=== PATIENT | female | born 1950 | race Caucasian/White ===

== ENCOUNTER 2017-07-23 15:51 | Inpatient (IN) ==
[2017-07-23] MEDS ORDERED: METOCLOPRAMIDE 10 MG/2 ML VIAL IV STA (16:24)
[2017-07-23] MEDS ORDERED: ONDANSETRON 4 MG/2 ML VIAL IV STA (16:24)
[2017-07-23] MEDS ORDERED: metroNIDAZOLE INJ 500 MG in PREMIX 1 EACH IV STA (16:24)
[2017-07-23] MEDS ORDERED: SODIUM CHLORIDE 0.9% 500 ML IV STA (16:24)
[2017-07-23] MEDS ORDERED: PANTOPRAZOLE 40 MG VIAL IV STA (16:24)
--- NOTE | 2017-07-23 16:31 | Emergency Department Note ---
Arrival - Arrival Chief Complaint: GI Bleed/Rectal Stated Complaint: stomach cramps,bleeding from rectum ED Nursing Triage Note: ABD PAIN, WEAKNESS, DARK STOOLS ONSET THIS AM Mode of Arrival: Ambulatory Limitations: No Limitations Source: Patient Time Seen by Provider: 07/23/17 16:24 - History of Present Illness HPI Narrative: This 66-year-old white female presents with 3 weeks of progressive crampy abdominal pain associated with nausea and in the last 24 hours black tarry bowel movements. The patient dates onset of her symptoms with a CT done July 02 which revealed diverticulitis versus acute colitis. Beyond the stated symptoms she denies shaheen vomiting, diarrhea, bright red blood per rectum , heartburn, belching, or water brash. She does state that she is awaiting a colonoscopy per Dr. Van. Notable during this. Has been problems with labile blood pressure with which she describes as significant periods of hypotension. In this regard she denies any chest pain, shortness of breath, or diaphoresis. Currently she appears in no acute medical distress. Onset (ago): week(s) (Patient presents 3 weeks post onset of symptoms) Allergies/Adverse Reactions: Allergies Allergy/AdvReac Type Severity Reaction Status Date / Time ciprofloxacin [From Cipro] Allergy HIVES Verified 07/23/17 16:05 iodine Allergy HIVES Verified 07/23/17 16:05 povidone-iodine Allergy HIVES Verified 07/23/17 16:05 [From Betadine] Seafood Allergy HIVES Verified 07/23/17 16:05 soap [From Betadine] Allergy HIVES Verified 07/23/17 16:05 Sulfa (Sulfonamide Allergy HIVES Verified 07/23/17 16:05 Antibiotics) sulfamethoxazole Allergy HIVES Verified 07/23/17 16:05 [From Bactrim] tolterodine [From Detrol] Allergy HIVES Verified 07/23/17 16:05 trimethoprim [From Bactrim] Allergy HIVES Verified 07/23/17 16:05 vancomycin Allergy HIVES Verified 07/23/17 16:05 Home Medications: Home Medications Medication Instructions Recorded Confirmed Type Ascorbic Acid [Vitamin C] 1,000 mg PO QAM 07/23/17 07/23/17 History Buspirone HCl [Buspirone HCl] 30 mg PO BID 07/23/17 07/23/17 History Butalbital/Acet/Caff 50-325-40 1 tablet PO Q4H PRN 07/23/17 07/23/17 History [Fioricet 50-325-40 mg Tablet] Cetirizine Tab [ZyrTEC Tab] 10 mg PO DAILY 07/23/17 07/23/17 History Clopidogrel Bisulfate [Clopidogrel] 75 mg PO QAM 07/23/17 07/23/17 History Dicyclomine Cap/Tab [Bentyl 10 mg PO QID PRN 07/23/17 07/23/17 History Cap/Tab] Divalproex ER [Depakote ER] 250 mg PO DAILY 07/23/17 07/23/17 History Docusate Sodium [Colace] 100 mg PO QAM PRN 07/23/17 07/23/17 History Eszopiclone [Lunesta] 2 mg PO BEDTIME 07/23/17 07/23/17 History Metoprolol Tartrate Tab [Lopressor 50 mg PO BID 07/23/17 07/23/17 History Tab] Ondansetron HCl [Ondansetron HCl] 8 mg PO Q8H PRN 07/23/17 07/23/17 History Oxycodone HCl/Acetaminophen 1 each PO TID 07/23/17 07/23/17 History [Oxycodone-Acetaminophen 10-325] Pregabalin [Lyrica] 150 mg PO BEDTIME 07/23/17 07/23/17 History Ranitidine Tab [Zantac Tab] 150 mg PO BID 07/23/17 07/23/17 History Rosuvastatin Calcium [Rosuvastatin 40 mg PO BEDTIME 07/23/17 07/23/17 History Calcium] Tizanidine HCl [Tizanidine HCl] 4 mg PO BEDTIME 07/23/17 07/23/17 History Tramadol HCl [Tramadol Tab] 100 mg PO BID 07/23/17 07/23/17 History hydrOXYzine pamoate [Hydroxyzine 25 mg PO BEDTIME 07/23/17 07/23/17 History Pamoate] Review of System - Review of System 12 point system: reviewed and no additional remarkable complaints except as stated - Review of System Constitutional: Present: as per HPI Respiratory: Present: as per HPI Cardiovascular: Present: as per HPI Gastrointestinal: Present: as per HPI Medical,Surgical,& Family Hx - Medical History Cardio: History of: Hypertension Neurology: History of: Cerebrovascular Accident Respiratory: History of: Asthma, COPD Musculoskeletal: History of: Back/Neck Problems, Musculoskeletal Problems ( chronic pain) - Social History Smoking Status: Never smoker Exam Physical Examination: GENERAL: Chronically ill-appearing white female in no acute distress. HEENT: Normocephalic. No trauma. Moist mucous membranes. EOMI. PERRLA. ENT NML NECK: Supple. No adenopathy. CARDIAC: Regular. No murmurs. Heart rate 76 CHEST: Clear to auscultation. No respiratory distress. O2 sat 91% ABDOMEN: Soft. Tender lower quadrants. Hypoactive bowel sounds. EXTREMITIES: No trauma. Normal ROM. No pedal edema. SKIN: No diaphoresis. No rash. NEURO: Alert. Oriented 3. Motor, sensory, vibratory intact. No focal deficits. Vital Signs: Vital Signs Temperature 98.0 F 07/23/17 16:20 Pulse Rate 76 07/23/17 16:20 Respiratory Rate 16 07/23/17 16:20 Blood Pressure 120/82 07/23/17 16:20 O2 Sat by Pulse Oximetry 99 07/23/17 16:02 Course - Reevaluation(s) Reevaluation #1: Patient advised of need for hospitalization with grossly heme positive stools and symptoms of recurrent diverticulitis. - Consultations Consultation #1: Discussed with hospitalist service who will admit for further evaluation treatment. Results - Labs CBC & BMP: 07/23/17 16:44 07/23/17 16:44 Labs: I reviewed the laboratory and noted the depressed hematocrit as well as bump in BUN. - Impressions EKG: Sinus rhythm with rate of 74. Normal NE interval, normal QRS duration. Nonspecific ST changes. No acute injury pattern noted. - Diagnostic Findings Procedure: Chest x-ray: image reviewed by me, report reviewed by me (Normal chest) Disposition Clinical Impression: Diverticulitis, Melena Case discussed with: patient, patient's family Disposition: Still a Patient Condition: Guarded Time of Disposition: 17:49
[2017-07-23] MEDS ORDERED: ONDANSETRON 4 MG/2 ML VIAL ONE (16:59)
[2017-07-23] MEDS ORDERED: PANTOPRAZOLE 40 MG VIAL IV ONE (16:59)
[2017-07-23] MEDS ORDERED: METOCLOPRAMIDE 10 MG/2 ML VIAL ONE (16:59)
[2017-07-23] MEDS ORDERED: metroNIDAZOLE 500 MG/100 ML PREMIX IV ONE (16:59)
[2017-07-23 17:07] LABS: Basophils % 0.4 % (0.0-0.8); Eosinophils % 0.4 % (0.00-10.9); Hematocrit 35.8 VOL% (35.7-47.0); Hemoglobin 11.8 GM/DL (12.0-16.0); Immature Granulocytes % 0.4 %; Immature Granulocytes Absolute 0.04 #; Lymphocytes # 2.5 10*3/uL (1.4-4.0); Lymphocytes % 27.3 % (21.3-54.2); Mean Corpuscular Hemoglobin 31 PG (27-34); Mean Corpuscular Volume 95.2 FL (87-102); Mean Platelet Volume 10.6 FL (9.6-12.0); Monocytes # 0.7 10*3/uL (0.11-0.8); Monocytes % 7.4 % (1.7-12.7); Neutrophils # 5.9 10*3/uL (1.4-7.4); Neutrophils % 64.1 % (38.7-73.9); Platelet Count 222 T/CUMM (130-400); Red Blood Count 3.76 MC/CUMM (3.8-5.5); Red Cell Distribution Width 12.6 % (9.3-17.3); White Blood Count 9.2 T/CUMM (4-12)
--- NOTE | 2017-07-23 17:13 | Order Completion Report ---
See report scanned to EMR
[2017-07-23 17:18] LABS: PT Patient Result 10.9 SECS; Partial Thromboplastin Time 27.4 SECS (0-40)
[2017-07-23 17:20] LABS: Alanine Aminotransferase 20 U/L (13-56); Albumin 3.8 G/DL (3.4-5.0); Alkaline Phosphatase 44 U/L (45-117); Aspartate Amino Transferase 23 U/L (0-37); Bilirubin,Total < 0.39 MG/DL (0.2-1.0); Blood Urea Nitrogen 38 MG/DL (7-18); Glucose 92 MG/DL (74-106); Osmolality,Calculated 289.3 MOS/KG (273-304); Potassium 4.4 MMOL/L (3.5-5.1); Sodium 141 MMOL/L (136-145); Total Protein 7.1 G/DL (6.4-8.3)
[2017-07-23 17:30] LABS: Troponin I Only < 0.015 NG/ML (0.00-0.045)
--- NOTE | 2017-07-23 17:58 | XRay Report ---
Portable chest Exam date: 07/23/2017 Indication: Shortness of breath, cough Comparison: July 18, 2015 Findings: Cardiomediastinal contours are normal. Lungs are clear bilaterally. No acute osseous abnormalities. Visualized upper abdomen demonstrates no acute pathology. Impression: No acute cardiopulmonary findings PROCEDURE INTERPRETED AT [facility] DEPARTMENT OF RADIOLOGY Final Report Signed by: Kenzie Cortes MD
[2017-07-23] MEDS ORDERED: MAGNESIUM SULF RIDER 4 GM in PREMIX 1 EACH IV PRN (18:11)
[2017-07-23] MEDS ORDERED: MAGNESIUM SULF RIDER 2 GM in PREMIX 1 EACH IV PRN (18:11)
--- NOTE | 2017-07-23 18:25 | Hospitalist History & Physical ---
Assessment and Plan (1) Diverticulitis Status: Acute Assessment and plan: The patient was noted to have diffuse lower quadrant tenderness upon gentle palpation at the time of assessment. The patient is followed in the outpatient setting by Dr. Addison Van. Upon review of the patient's medical record, the patient was recently evaluated for symptoms similar in nature. The patient underwent CT abdomen and pelvis in the outpatient setting which was significant for diverticulitis versus acute colitis and hepatic steatosis. The patient was scheduled for an outpatient colonoscopy however, started to experience bradycardia. The patient was then advised to have a full cardiac workup and stress test in order to be cleared for colonoscopy. We will start gentle rehydration, empiric antibiotics, and pain management. We will place the patient n.p.o. Gastroenterology consultation has been requested. Current Visit: Yes (2) Acute kidney injury Status: Acute Assessment and plan: BUN and creatinine noted at 38 and 1.10. This is likely secondary to volume depletion. Upon review of the patient's medical record, during the previous clinical encounter on July 02, 2017, the patient's creatinine was noted at 0.66. We will rehydrate and recheck CMP in a.m. Current Visit: Yes History of Present Illness Chief complaint: abdominal cramps/rectal bleeding History of present illness: This is a very pleasant 58-year-old female that presented to the ED at [facility] this afternoon for the evaluation of abdominal cramping and rectal bleeding. Patient has a medical history significant for hypertension , cerebrovascular accident, asthma, chronic obstructive pulmonary disease, chronic pain, hyperlipidemia, gastroesophageal reflux disease, and conversion disorder. The patient reported no significant surgical history at the time of encounter. The patient reported the onset of the above symptoms 3 weeks prior to presentation. The patient reports that she is followed in the outpatient setting by Dr. Addison Van. She reported a recent evaluation and outpatient CT of the abdomen and pelvis ordered by Dr. Van. The patient underwent CT abdomen and pelvis on July 02, 2017 which was significant for diverticulitis versus acute colitis. Apparently, the patient started to experience profound bradycardia prompting cancellation of the pending colonoscopy. The patient had been referred to a cashier ticket selling and a full cardiac workup was performed. The patient underwent cardiac stress test on last week for clearance however, the patient has not received the results. The patient reported that she experienced multiple black tarry stools that started on yesterday. Her symptoms became severe this afternoon prompting her to present to the ED for further evaluation. The patient was assessed at the time of ED presentation. Labs were obtained which were significant for hemoglobin 11.8, hematocrit 35.8, chloride 108, BUN 38, creatinine 1.10 and alkaline phosphatase 44. Chest x-ray was essentially unremarkable for any acute cardiopulmonary processes. After brief discussion with both Dr. Stephenson and Dr. Mathur, the patient will be admitted to the hospitalist service for continuation of care. Due to the severity of the patient's presenting symptoms, a gastroenterology consultation with Dr. Addison Van has been requested. Home medications have been reviewed and reconciled. CODE STATUS discussed; patient is FULL CODE. Home Medications Medication Instructions Recorded Confirmed Type Ascorbic Acid [Vitamin C] 1,000 mg PO QAM 07/23/17 07/23/17 History Buspirone HCl [Buspirone HCl] 30 mg PO BID 07/23/17 07/23/17 History Butalbital/Acet/Caff 50-325-40 1 tablet PO Q4H PRN 07/23/17 07/23/17 History [Fioricet 50-325-40 mg Tablet] Cetirizine Tab [ZyrTEC Tab] 10 mg PO DAILY 07/23/17 07/23/17 History Clopidogrel Bisulfate [Clopidogrel] 75 mg PO QAM 07/23/17 07/23/17 History Dicyclomine Cap/Tab [Bentyl 10 mg PO QID PRN 07/23/17 07/23/17 History Cap/Tab] Divalproex ER [Depakote ER] 250 mg PO DAILY 07/23/17 07/23/17 History Docusate Sodium [Colace] 100 mg PO QAM PRN 07/23/17 07/23/17 History Eszopiclone [Lunesta] 2 mg PO BEDTIME 07/23/17 07/23/17 History Metoprolol Tartrate Tab [Lopressor 50 mg PO BID 07/23/17 07/23/17 History Tab] Ondansetron HCl [Ondansetron HCl] 8 mg PO Q8H PRN 07/23/17 07/23/17 History Oxycodone HCl/Acetaminophen 1 each PO TID 07/23/17 07/23/17 History [Oxycodone-Acetaminophen 10-325] Pregabalin [Lyrica] 150 mg PO BEDTIME 07/23/17 07/23/17 History Ranitidine Tab [Zantac Tab] 150 mg PO BID 07/23/17 07/23/17 History Rosuvastatin Calcium [Rosuvastatin 40 mg PO BEDTIME 07/23/17 07/23/17 History Calcium] Tizanidine HCl [Tizanidine HCl] 4 mg PO BEDTIME 07/23/17 07/23/17 History Tramadol HCl [Tramadol Tab] 100 mg PO BID 07/23/17 07/23/17 History hydrOXYzine pamoate [Hydroxyzine 25 mg PO BEDTIME 07/23/17 07/23/17 History Pamoate] Allergies Allergy/AdvReac Type Severity Reaction Status Date / Time ciprofloxacin [From Cipro] Allergy HIVES Verified 07/23/17 16:05 iodine Allergy HIVES Verified 07/23/17 16:05 povidone-iodine Allergy HIVES Verified 07/23/17 16:05 [From Betadine] Seafood Allergy HIVES Verified 07/23/17 16:05 soap [From Betadine] Allergy HIVES Verified 07/23/17 16:05 Sulfa (Sulfonamide Allergy HIVES Verified 07/23/17 16:05 Antibiotics) sulfamethoxazole Allergy HIVES Verified 07/23/17 16:05 [From Bactrim] tolterodine [From Detrol] Allergy HIVES Verified 07/23/17 16:05 trimethoprim [From Bactrim] Allergy HIVES Verified 07/23/17 16:05 vancomycin Allergy HIVES Verified 07/23/17 16:05 Medical,Surgical,& Family Hx - Medical History Cardio: History of: Hypertension Neurology: History of: Cerebrovascular Accident Respiratory: History of: Asthma, COPD Musculoskeletal: History of: Back/Neck Problems, Musculoskeletal Problems ( chronic pain) - Family History Family History: Reports;: Family Diabetes, Family Heart Disease, Family Hypertension - Social History Smoking Status: Never smoker Have you smoked in the last 12 months: No Frequency of Alcohol Use: None Type of Drug Use: None Marital Status: Lives With:: Spouse 12 point system: reviewed and no additional remarkable complaints except as stated Exam - Constitutional Vitals: Period Temp Pulse Resp BP Sys/Sorenson Pulse Ox Last 24 Hr 98.0 F-98.0 F 76-76 16-16 120-120/82-82 99 General appearance: normal weight, no acute distress - Head Head exam: Present: normal inspection, normocephalic, atraumatic - Eye Eye exam: Present: EOMI. Absent: conjunctival injection Pupils: Present: JOHN, normal accommodation - ENT ENT exam: Present: normal exam, normal external ear exam, normal oropharynx - Neck Neck exam: Present: normal inspection, lymphadenopathy, meningismus, tenderness , thyromegaly - Respiratory Respiratory exam: Present: clear to auscultation bilaterally. Absent: rales, rhonchi, stridor, wheezes - Cardiovascular Cardiovascular exam: Present: regular rate and rhythm. Absent: carotid bruit, diastolic murmur, gallop, JVD, rubs, systolic murmur - GI/Abdominal GI/Abdominal exam: Present: normal bowel sounds, tenderness (Diffuse lower quadrant tenderness) - Extremities Exam Extremities exam: Present: normal inspection, normal capillary refill, full ROM. Absent: edema - Back Exam Back exam: Present: normal inspection - Neurological Exam Neurological exam: Present: alert, oriented X3, CN II-XII intact - Psychiatric Psychiatric exam: Present: flat affect - Skin Skin exam: Present: normal color, warm, dry Results - Labs CBC & BMP: 07/23/17 16:44 07/23/17 16:44 Lab Results: I have reviewed the past 24 hour labs
[2017-07-23] MEDS: METOPROLOL TARTRATE 50 MG TABLET PO SCH (21:40)
[2017-07-23] MEDS: MORPHINE 2 MG/1 ML SYRINGE IV PRN (21:40)
[2017-07-23] MEDS: HydrOXYzine PAMOATE 25 MG CAPSULE PO SCH (21:43)
[2017-07-23 22:01] LABS: Alanine Aminotransferase 19 U/L (13-56); Albumin 3.3 G/DL (3.4-5.0); Alkaline Phosphatase 36 U/L (45-117); Aspartate Amino Transferase 17 U/L (0-37); Bilirubin,Total < 0.39 MG/DL (0.2-1.0); Blood Urea Nitrogen 34 MG/DL (7-18); Calcium 8.2 MG/DL (8.5-10.1); Glucose 90 MG/DL (74-106); Potassium 4.1 MMOL/L (3.5-5.1); Sodium 143 MMOL/L (136-145); Total Protein 6.1 G/DL (6.4-8.3)
[2017-07-23] MEDS: AMPICILLIN/SULBACTAM 3,000 MG in SODIUM CHLORIDE 0.9% 100 ML IV SCH (22:03)
[2017-07-23] MEDS: SODIUM CHLORIDE 0.9% 1,000 ML IV SCH (22:03)
[2017-07-24] MEDS: metroNIDAZOLE INJ 500 MG in PREMIX 1 EACH IV SCH ×5 (00:20→23:24)
[2017-07-24] MEDS: AMPICILLIN/SULBACTAM 3,000 MG in SODIUM CHLORIDE 0.9% 100 ML IV SCH ×4 (02:51→22:15)
[2017-07-24 08:00] LABS: Basophils # 0.1 10*3/uL (0.0-0.2); Basophils % 0.9 % (0.0-0.8); Eosinophils # 0.1 10*3/uL (0.0-0.87); Eosinophils % 1.6 % (0.00-10.9); Immature Granulocytes % 0.2 %; Immature Granulocytes Absolute 0.01 #; Lymphocytes # 2.3 10*3/uL (1.4-4.0); Lymphocytes % 40.8 % (21.3-54.2); Mean Corpuscular HGB Conc 32.8 GM/DL (32-36); Mean Corpuscular Hemoglobin 31 PG (27-34); Mean Corpuscular Volume 95.7 FL (87-102); Mean Platelet Volume 10.9 FL (9.6-12.0); Monocytes # 0.5 10*3/uL (0.11-0.8); Monocytes % 8.5 % (1.7-12.7); Neutrophils # 2.7 10*3/uL (1.4-7.4); Platelet Count 182 T/CUMM (130-400); Red Blood Count 3.03 MC/CUMM (3.8-5.5); Red Cell Distribution Width 12.7 % (9.3-17.3)
[2017-07-24 08:01] LABS: Hemoglobin 9.5 GM/DL (12.0-16.0); White Blood Count 5.7 T/CUMM (4-12)
[2017-07-24 08:04] LABS: Bilirubin,Total 0.5 MG/DL (0.2-1.0); Calcium 7.9 MG/DL (8.5-10.1); Magnesium 2.2 MG/DL (1.8-2.4); Osmolality,Calculated 286.1 MOS/KG (273-304); Phosphorous 2.2 MG/DL (2.5-4.9); Potassium 3.7 MMOL/L (3.5-5.1); Total Protein 5.5 G/DL (6.4-8.3)
[2017-07-24 08:22] LABS: Giant Platelets Few; Hypochromasia 1+; Microcytosis Slight; Ovalocytes Slight; Platelet Estimate Normal
--- NOTE | 2017-07-24 08:52 | Gastrointestinal Consult Note ---
<Elvia Hansen - Last Filed: 07/24/17 08:42> Assessment and Plan (1) Abdominal pain Status: Acute Assessment and plan: 07/24-Three to four week history of abdominal pain with nausea and vomiting. CT of abdomen results on 07/02 reviewed as below with diverticultisis verses colitis. IV Flagyl and Unasyn started. Stool for occult blood pending. No leukocytosis or fever. Clear liquid diet. Plan and addendum to follow by Dr Van Current Visit: Yes (2) Melena Status: Acute Assessment and plan: 07/24-New onset melena on yesterday without associated symptoms. On Plavix therapy as well as Naproxen and Aleve. Consider EGD for further evaluation of melena. Monitor serial HH. Stools for occult blood pending. Plan and addendum to follow by DR Van. Current Visit: Yes History of Present Illness Chief complaint: Abdominal pain, melena History of present illness: Ms. Medina is a 66 year old female who was admitted to the hospital on yesterday with several week history of abdominal pain and onset of melena. Pt states that approximately 3-4 weeks ago she began having some RLQ abdominal pain and cramping. She states that pain started gradually and worsened over time. She had no other symptoms associated with this at that time however presented to see Dr Tran. She had a CT of the abdomen done and was noted to show diverticulitis verses colitis at the descending and sigmoid colon. She was then seen by Dr Van and give antibiotics which pt states she did complete. She states the pain did not improve following this and was scheduled for a colonoscopy however she began having some cardiac issues with bradycardia and blood pressure and was referred to [facility]. She underwent stress test last week but has not heard back from the results. She states over the last several days she continued to have pain and cramping as well as nausea with three different episodes of vomiting. She states the vomiting she felt was more related to her blood pressure, and denies any coffee ground or hematemesis with this. Pt states that on yesterday morning she developed some dark tarry stools and came to the ER at that point. She denies any hematochezia. She denies any recent weight loss, dysphagia or dyspepsia. She denies any increased GERD. She states she has no epigastric pain or discomfort. Denies fever or chills. Denies changes in bowel pattern. She has no prior history of PUD In the past. She states that she does take occasional Aleve and Naproxen. She has chronic pain and takes daily opiod therapy. Pt also takes Plavix for a stroke in 2012. Her last dose of this was yesterday and is currently on hold. She has had endoscopy in the past by Dr Cheng with last colonoscopy several years ago with no findings per patient. She cannot recall last EGD. On admission, her HH was at and is now at 07/19 however its possible this could be dilutional due to no overt bleeding since prior to admission. Home Medications Medication Instructions Recorded Confirmed Type Ascorbic Acid [Vitamin C] 1,000 mg PO QAM 07/23/17 07/23/17 History Buspirone HCl [Buspirone HCl] 30 mg PO BID 07/23/17 07/23/17 History Butalbital/Acet/Caff 50-325-40 1 tablet PO Q4H PRN 07/23/17 07/23/17 History [Fioricet 50-325-40 mg Tablet] Cetirizine Tab [ZyrTEC Tab] 10 mg PO DAILY 07/23/17 07/23/17 History Clopidogrel Bisulfate [Clopidogrel] 75 mg PO QAM 07/23/17 07/23/17 History Dicyclomine Cap/Tab [Bentyl 10 mg PO QID PRN 07/23/17 07/23/17 History Cap/Tab] Divalproex ER [Depakote ER] 250 mg PO DAILY 07/23/17 07/23/17 History Docusate Sodium [Colace] 100 mg PO QAM PRN 07/23/17 07/23/17 History Eszopiclone [Lunesta] 2 mg PO BEDTIME 07/23/17 07/23/17 History Metoprolol Tartrate Tab [Lopressor 50 mg PO BID 07/23/17 07/23/17 History Tab] Naproxen [Naprosyn Tab] 1 tablet PO BID PRN 07/23/17 07/23/17 History Ondansetron HCl [Ondansetron HCl] 8 mg PO Q8H PRN 07/23/17 07/23/17 History Oxycodone HCl/Acetaminophen 1 each PO TID 07/23/17 07/23/17 History [Oxycodone-Acetaminophen 10-325] Pregabalin [Lyrica] 150 mg PO BEDTIME 07/23/17 07/23/17 History Ranitidine Tab [Zantac Tab] 150 mg PO BID 07/23/17 07/23/17 History Rosuvastatin Calcium [Rosuvastatin 40 mg PO BEDTIME 07/23/17 07/23/17 History Calcium] Tizanidine HCl [Tizanidine HCl] 4 mg PO BEDTIME 07/23/17 07/23/17 History Tramadol HCl [Tramadol Tab] 100 mg PO BID PRN 07/23/17 07/23/17 History hydrOXYzine pamoate [Hydroxyzine 25 mg PO BEDTIME 07/23/17 07/23/17 History Pamoate] Allergies Allergy/AdvReac Type Severity Reaction Status Date / Time ciprofloxacin [From Cipro] Allergy HIVES Verified 07/23/17 16:05 iodine Allergy HIVES Verified 07/23/17 16:05 povidone-iodine Allergy HIVES Verified 07/23/17 16:05 [From Betadine] Seafood Allergy HIVES Verified 07/23/17 16:05 soap [From Betadine] Allergy HIVES Verified 07/23/17 16:05 Sulfa (Sulfonamide Allergy HIVES Verified 07/23/17 16:05 Antibiotics) sulfamethoxazole Allergy HIVES Verified 07/23/17 16:05 [From Bactrim] tolterodine [From Detrol] Allergy HIVES Verified 07/23/17 16:05 trimethoprim [From Bactrim] Allergy HIVES Verified 07/23/17 16:05 vancomycin Allergy HIVES Verified 07/23/17 16:05 Medical,Surgical,& Family Hx - Medical History Cardio: History of: Cerebrovascular Disease (cva 2013), Hypertension Neurology: History of: Cerebrovascular Accident Endocrine: History of: Endocrine Problems (diabetic- diet controlled) Respiratory: History of: Asthma, COPD Musculoskeletal: History of: Back/Neck Problems, Musculoskeletal Problems ( chronic pain) - Surgical History Reproductive Surgeries: Surgical HX of;: Section, Hysterectomy - Family History Family History: Reports;: Family Diabetes, Family Heart Disease, Family Hypertension - Social History Smoking Status: Never smoker Frequency of Alcohol Use: None Type of Drug Use: None 12 point system: reviewed and no additional remarkable complaints except as stated - Constitutional Constitutional: Present: as per HPI - EENT Eyes: Present: as per HPI Ears: Present: as per HPI Nose, mouth and throat: Present: as per HPI - Cardiovascular Cardiovascular: Present: as per HPI - Respiratory Respiratory: Present: as per HPI - Gastrointestinal Gastrointestinal: Present: as per HPI, abdominal pain, melena, nausea, vomiting - Genitourinary Genitourinary: Present: as per HPI - Musculoskeletal Musculoskeletal: Present: as per HPI, arthralgias, back pain - Neurological Neurological: Present: as per HPI - Psychiatric Psychiatric: Present: as per HPI - Endocrine Endocrine: Present: as per HPI - Hematologic/Lymphatic Hematologic/Lymphatic: Present: as per HPI Exam - Constitutional Vitals: Period Temp Pulse Resp BP Sys/Sorenson Pulse Ox Last 24 Hr 98 F-99.4 F 73-98 16-20 96-140/48-82 95-100 General appearance: normal weight, no acute distress - Head Head exam: Present: normal inspection, normocephalic - Eye Eye exam: Present: other (lids and conjunctiva unremarkable). Absent: scleral icterus - ENT ENT exam: Present: normal exam, normal oropharynx - Neck Neck exam: Present: normal inspection - Respiratory Respiratory exam: Present: clear to auscultation bilaterally. Absent: rales, rhonchi, wheezes - Cardiovascular Cardiovascular exam: Present: regular rate and rhythm. Absent: diastolic murmur , JVD, systolic murmur - GI/Abdominal GI/Abdominal exam: Present: normal bowel sounds, soft. Absent: ascites, distended, mass, organomegaly, tenderness - Extremities Exam Extremities exam: Present: normal inspection, full ROM - Back Exam Back exam: Present: normal inspection - Neurological Exam Neurological exam: Present: alert, oriented X3 - Psychiatric Psychiatric exam: Present: normal affect, normal mood - Skin Skin exam: Present: normal color, warm, dry Results - Labs CBC & BMP: 07/24/17 05:52 07/24/17 05:52 Lab Results: I have reviewed the past 24 hour labs <Addison Van - Last Filed: 07/24/17 22:20> History of Present Illness Chief complaint: 3030 History of present illness: Ms. Medina is a 66 year old female Exam - Constitutional Vitals: Period Temp Pulse Resp BP Sys/Sorenson Pulse Ox Last 24 Hr 98 F-99.4 F 73-87 16-20 89-127/37-60 92-100 Results - Labs CBC & BMP: 07/24/17 05:52 07/24/17 05:52
[2017-07-24] MEDS: CETIRIZINE 10 MG TABLET PO SCH (09:01)
[2017-07-24] MEDS: METOPROLOL TARTRATE 50 MG TABLET PO SCH (09:01)
[2017-07-24] MEDS: DIVALPROEX ER 250 MG TABLET PO SCH (09:01)
[2017-07-24] MEDS: SODIUM CHLORIDE 0.9% 1,000 ML IV SCH ×2 (09:01→20:30)
[2017-07-24] MEDS: PANTOPRAZOLE 40 MG VIAL IV SCH (09:02)
[2017-07-24] MEDS ORDERED: SODIUM PHOSPHATE INJ 30 MMOL in SODIUM CHLORIDE 0.9% 250 ML IV ONE (09:17)
[2017-07-24] MEDS: MORPHINE 2 MG/1 ML SYRINGE IV PRN (09:56)
--- NOTE | 2017-07-24 10:56 | Hospitalist Progress Note ---
<Morro Alcantara - Last Filed: 07/24/17 10:52> Assessment and Plan (1) Diverticulitis Status: Acute Assessment and plan: The patient was noted to have diffuse lower quadrant tenderness upon gentle palpation at the time of assessment. The patient is followed in the outpatient setting by Dr. Addison Van. Upon review of the patient's medical record, the patient was recently evaluated for symptoms similar in nature. The patient underwent CT abdomen and pelvis in the outpatient setting which was significant for diverticulitis versus acute colitis and hepatic steatosis. The patient was scheduled for an outpatient colonoscopy however, started to experience bradycardia. The patient was then advised to have a full cardiac workup and stress test in order to be cleared for colonoscopy. We will start gentle rehydration, empiric antibiotics, and pain management. We will place the patient n.p.o. Gastroenterology consultation has been requested. 07/24-continue supportive measures as previously ordered. Awaiting GI consultation for further direction. Current Visit: Yes (2) Acute kidney injury Status: Acute Assessment and plan: BUN and creatinine noted at 38 and 1.10. This is likely secondary to volume depletion. Upon review of the patient's medical record, during the previous clinical encounter on July 02, 2017, the patient's creatinine was noted at 0.66. We will rehydrate and recheck CMP in a.m. 07/24-noted improvement in renal function. BUN and creatinine noted at 23/0.80. We will continue gentle hydration and recheck CMP in a.m. Current Visit: Yes Hospitalist: Subjective Interval history: Patient seen and examined; chart reviewed. No significant overnight events reported per staff. Awaiting GI consultation for further direction. Exam - Constitutional Vitals: Period Temp Pulse Resp BP Sys/Sorenson Pulse Ox Last 24 Hr 98 F-99.4 F 73-98 16-20 96-140/48-82 95-100 General appearance: normal weight, no acute distress - Head Head exam: Present: normal inspection, normocephalic, atraumatic - Eye Eye exam: Present: EOMI. Absent: conjunctival injection Pupils: Present: JOHN, normal accommodation - ENT ENT exam: Present: normal exam, normal external ear exam, normal oropharynx - Neck Neck exam: Present: normal inspection. Absent: lymphadenopathy, meningismus, tenderness, thyromegaly - Respiratory Respiratory exam: Present: clear to auscultation bilaterally. Absent: rales, rhonchi, stridor, wheezes - Cardiovascular Cardiovascular exam: Present: regular rate and rhythm. Absent: carotid bruit, diastolic murmur, gallop, JVD, systolic murmur - GI/Abdominal GI/Abdominal exam: Present: normal bowel sounds, tenderness (Diffuse lower abdominal tenderness) - Extremities Exam Extremities exam: Present: normal inspection, normal capillary refill, full ROM. Absent: edema - Back Exam Back exam: Present: normal inspection - Neurological Exam Neurological exam: Present: alert, oriented X3, CN II-XII intact - Psychiatric Psychiatric exam: Present: flat affect - Skin Skin exam: Present: normal color, warm, dry Results - Labs CBC & BMP: 07/24/17 05:52 07/24/17 05:52 Lab Results: I have reviewed the past 24 hour labs <David Fajardo - Last Filed: 07/24/17 15:31> Hospitalist: Subjective Interval history: Patient seen and examined independently of MARIAN Alcantara, agree with history, assessment and plan as documented. Patient reports abdominal cramping. Her blood pressure is running low. Hold her metoprolol. Exam - Constitutional Vitals: Period Temp Pulse Resp BP Sys/Sorenson Pulse Ox Last 24 Hr 98 F-99.4 F 73-98 16-20 89-140/37-82 92-100 Results - Labs CBC & BMP: 07/24/17 05:52 07/24/17 05:52
[2017-07-24] MEDS: ONDANSETRON 4 MG/2 ML VIAL IV PRN (20:09)
[2017-07-24] MEDS: HydrOXYzine PAMOATE 25 MG CAPSULE PO SCH (20:10)
[2017-07-24] MEDS: KETOROLAC 30 MG/1 ML VIAL IV PRN (21:22)
[2017-07-24] MEDS: MELATONIN 3 MG TABLET PO PRN (23:24)
[2017-07-25] MEDS: AMPICILLIN/SULBACTAM 3,000 MG in SODIUM CHLORIDE 0.9% 100 ML IV SCH ×4 (04:08→21:26)
[2017-07-25] MEDS: metroNIDAZOLE INJ 500 MG in PREMIX 1 EACH IV SCH ×4 (05:11→22:36)
[2017-07-25 06:50] LABS: Alanine Aminotransferase 13 U/L (13-56); Albumin 2.8 G/DL (3.4-5.0); Alkaline Phosphatase 30 U/L (45-117); Aspartate Amino Transferase 18 U/L (0-37); Bilirubin,Total < 0.39 MG/DL (0.2-1.0); Blood Urea Nitrogen 8 MG/DL (7-18); Calcium 7.4 MG/DL (8.5-10.1); Glucose 123 MG/DL (74-106); Magnesium 1.8 MG/DL (1.8-2.4); Osmolality,Calculated 292.3 MOS/KG (273-304); Phosphorous 3.2 MG/DL (2.5-4.9); Potassium 3.1 MMOL/L (3.5-5.1); Sodium 148 MMOL/L (136-145); Total Protein 5.2 G/DL (6.4-8.3)
[2017-07-25 07:47] LABS: Basophils % 0.7 % (0.0-0.8); Eosinophils # 0.2 10*3/uL (0.0-0.87); Hematocrit 23.5 VOL% (35.7-47.0); Immature Granulocytes % 0.2 %; Immature Granulocytes Absolute 0.01 #; Lymphocytes # 1.4 10*3/uL (1.4-4.0); Lymphocytes % 32.2 % (21.3-54.2); Mean Corpuscular HGB Conc 33.6 GM/DL (32-36); Mean Corpuscular Hemoglobin 32 PG (27-34); Mean Corpuscular Volume 95.1 FL (87-102); Mean Platelet Volume 10.2 FL (9.6-12.0); Monocytes # 0.4 10*3/uL (0.11-0.8); Monocytes % 9.2 % (1.7-12.7); Neutrophils # 2.3 10*3/uL (1.4-7.4); Neutrophils % 53.7 % (38.7-73.9); Platelet Count 148 T/CUMM (130-400); Red Blood Count 2.47 MC/CUMM (3.8-5.5); Red Cell Distribution Width 12.7 % (9.3-17.3); White Blood Count 4.2 T/CUMM (4-12)
[2017-07-25] MEDS: POTASSIUM CHLORIDE RIDER 10 MEQ in PREMIX 1 EACH IV PRN ×4 (08:00→11:25)
[2017-07-25] MEDS: SODIUM CHLORIDE 0.9% 1,000 ML IV SCH ×2 (08:00→20:07)
[2017-07-25 08:01] LABS: Hemoglobin 7.9 GM/DL (12.0-16.0)
[2017-07-25] MEDS: CETIRIZINE 10 MG TABLET PO SCH ×2 (08:16→16:09)
[2017-07-25] MEDS: DIVALPROEX ER 250 MG TABLET PO SCH ×2 (08:16→16:08)
[2017-07-25] MEDS ORDERED: LIDOCAINE 2% 5 ML VIAL ONE (09:00)
[2017-07-25] MEDS ORDERED: PROPOFOL 200 MG/20 ML VIAL IV ONE (09:00)
[2017-07-25] MEDS: PANTOPRAZOLE 40 MG VIAL IV SCH (09:20)
--- NOTE | 2017-07-25 10:01 | Hospitalist Progress Note ---
<Morro Alcantara - Last Filed: 07/25/17 09:58> Assessment and Plan (1) Diverticulitis Status: Acute Assessment and plan: The patient was noted to have diffuse lower quadrant tenderness upon gentle palpation at the time of assessment. The patient is followed in the outpatient setting by Dr. Addison Van. Upon review of the patient's medical record, the patient was recently evaluated for symptoms similar in nature. The patient underwent CT abdomen and pelvis in the outpatient setting which was significant for diverticulitis versus acute colitis and hepatic steatosis. The patient was scheduled for an outpatient colonoscopy however, started to experience bradycardia. The patient was then advised to have a full cardiac workup and stress test in order to be cleared for colonoscopy. We will start gentle rehydration, empiric antibiotics, and pain management. We will place the patient n.p.o. Gastroenterology consultation has been requested. 07/24-continue supportive measures as previously ordered. Awaiting GI consultation for further direction. 07/25-EGD this a.m. per gastroenterology. Current Visit: Yes (2) Acute kidney injury Status: Acute Assessment and plan: BUN and creatinine noted at 38 and 1.10. This is likely secondary to volume depletion. Upon review of the patient's medical record, during the previous clinical encounter on July 02, 2017, the patient's creatinine was noted at 0.66. We will rehydrate and recheck CMP in a.m. 07/24-noted improvement in renal function. BUN and creatinine noted at 23/0.80. We will continue gentle hydration and recheck CMP in a.m. 07/25-renal function has normalized; BUN and creatinine noted at 8/0.70. Current Visit: Yes (3) Anemia Status: Acute Assessment and plan: Noted decrease in blood counts; hemoglobin and hematocrit noted at 7.9/23.5 a noted decrease from 9.5/29.01 yesterday. We will recheck CBC in a.m. If levels continue to decline, the patient may require transfusion. Current Visit: Yes Hospitalist: Subjective Interval history: Patient seen and examined; chart reviewed. No significant overnight events reported per staff. EGD scheduled this a.m. per GI. Exam - Constitutional Vitals: Period Temp Pulse Resp BP Sys/Sorenson Pulse Ox Last 24 Hr 98.5 F-99.2 F 74-91 16-18 89-145/37-071 92-98 General appearance: normal weight, no acute distress - Head Head exam: Present: normal inspection, normocephalic, atraumatic - Eye Eye exam: Present: EOMI. Absent: conjunctival injection Pupils: Present: JOHN, normal accommodation - ENT ENT exam: Present: normal exam, normal external ear exam, normal oropharynx - Neck Neck exam: Present: normal inspection. Absent: lymphadenopathy, meningismus, tenderness, thyromegaly - Respiratory Respiratory exam: Present: clear to auscultation bilaterally. Absent: rales, rhonchi, stridor, wheezes - Cardiovascular Cardiovascular exam: Present: regular rate and rhythm. Absent: carotid bruit, diastolic murmur, gallop, JVD, rubs, systolic murmur - GI/Abdominal GI/Abdominal exam: Present: normal bowel sounds, soft - Extremities Exam Extremities exam: Present: normal inspection, normal capillary refill, full ROM. Absent: edema - Back Exam Back exam: Present: normal inspection - Neurological Exam Neurological exam: Present: alert, oriented X3, CN II-XII intact - Psychiatric Psychiatric exam: Present: normal affect, normal mood - Skin Skin exam: Present: normal color, warm, dry Results - Labs CBC & BMP: 07/25/17 07:26 07/25/17 05:49 Lab Results: I have reviewed the past 24 hour labs <David Fajardo - Last Filed: 07/25/17 18:46> Hospitalist: Subjective Interval history: Patient seen and examined independently of MARIAN Alcantara, agree with assessment and plan as documented. This afternoon patient with a orange mucus like bowel movement followed by abdominal cramping. Patient then became unresponsive. Her sister is insistent that this is normal due to her conversion disorder. Vital signs stable. She woke up after ~30 minutes. Exam - Constitutional Vitals: Period Temp Pulse Resp BP Sys/Sorenson Pulse Ox Last 24 Hr 98.0 F-99.2 F 72-101 14-20 100-145/44-076 93-100 Results - Labs CBC & BMP: 07/25/17 17:23 07/25/17 17:38
--- NOTE | 2017-07-25 10:04 | History and Physical Update ---
History and Physical Update - Physical Exam Mental Status: alert and oriented Heart: regular rate and rhythm Lung: clear to auscultation Abdomen: within normal limits Vitals: within normal limits
--- NOTE | 2017-07-25 10:06 | Operative Note ---
Date of procedure: 07/25/17 Pre-op diagnosis: Melena Procedure: EGD 66-year-old female admitted with melenic stools is on chronic anticoagulation with Plavix and takes frequent nonsteroidals. She is now for EGD her Plavix is only been held for 2 days. Informed consent was obtained the patient She was sedated with general anesthesia per anesthesia protocol. Patient was placed in left lateral decubitus position the Olympus flexible video upper endoscope was inserted or cavity under direct vision the esophagus was intubated. Findings: Esophagus-normal proximal mid esophageal mucosa distal esophagus with moderate hiatal hernia and a distal esophageal stricture. No significant esophagitis was seen. Stomach-normal insufflation no blood seen throughout the body fundus cardia and stomach. In the prepyloric antrum there is edema and a zepeda-based ulcer crater measuring approximately 4 mm without visible vessel or active bleeding. No biopsies were taken due to anticoagulation. Pylorus normal Duodenum normal for the bulb and duodenum to the third portion of duodenum. The procedure terminated placed our procedure well she is discharge recovery in good condition. Postop diagnosis: 1. Acute peptic ulcer disease-continue PPI treatment, hold Plavix. Monitor for signs symptoms of active bleeding and transfuse as needed. No nonsteroidals are recommended with patient on chronic anticoagulation. Anesthesia: other (General) Surgeon / Physician: Addison Van Estimated blood loss: none Specimens: none sent Condition: stable Disposition: post procedure unit Results - Labs CBC & BMP: 07/25/17 07:26 07/25/17 05:49 Discharge Plan - Discharge Medications No Action Butalbital/Acet/Caff 50-325-40 [Fioricet 50-325-40 mg Tablet] 1 tablet PO Q4H PRN PRN Reason: Headache Divalproex ER [Depakote ER] 250 mg PO DAILY Metoprolol Tartrate Tab [Lopressor Tab] 50 mg PO BID Cetirizine Tab [ZyrTEC Tab] 10 mg PO DAILY hydrOXYzine pamoate [Hydroxyzine Pamoate] 25 mg PO BEDTIME Tramadol HCl [Tramadol Tab] 100 mg PO BID PRN PRN Reason: Pain Tizanidine HCl [Tizanidine HCl] 4 mg PO BEDTIME Pregabalin [Lyrica] 150 mg PO BEDTIME Ondansetron HCl [Ondansetron HCl] 8 mg PO Q8H PRN PRN Reason: Nausea Docusate Sodium [Colace] 100 mg PO QAM PRN PRN Reason: Constipation Clopidogrel Bisulfate [Clopidogrel] 75 mg PO QAM Ascorbic Acid [Vitamin C] 1,000 mg PO QAM Eszopiclone [Lunesta] 2 mg PO BEDTIME Ranitidine Tab [Zantac Tab] 150 mg PO BID Dicyclomine Cap/Tab [Bentyl Cap/Tab] 10 mg PO QID PRN PRN Reason: rectal pain Rosuvastatin Calcium [Rosuvastatin Calcium] 40 mg PO BEDTIME Oxycodone HCl/Acetaminophen [Oxycodone-Acetaminophen 10-325] 1 each PO TID Buspirone HCl [Buspirone HCl] 30 mg PO BID Naproxen [Naprosyn Tab] 1 tablet PO BID PRN PRN Reason: Pain - Follow Up or Referral - Forms/Instructions
--- NOTE | 2017-07-25 10:13 | Anesthesia Post-Op ---
Anesthesia Post OP - Post Ansesthetic Evaluation Patient seen in post op: Yes Resp: within normal limits CV: within normal limits Mental: within normal limits Temp: within normal limits [id number]-Hu-[id number]: within normal limits Nausea and Vomiting: within normal limits Pain: within normal limits
[2017-07-25] MEDS: ONDANSETRON 4 MG/2 ML VIAL IV PRN (11:45)
[2017-07-25] MEDS: KETOROLAC 30 MG/1 ML VIAL IV PRN ×2 (16:16→21:25)
[2017-07-25] MEDS ORDERED: SODIUM CHLORIDE 0.9% 250 ML IV PRN (17:03)
[2017-07-25 17:58] LABS: Basophils % 0.4 % (0.0-0.8); Eosinophils # 0.2 10*3/uL (0.0-0.87); Eosinophils % 3.2 % (0.00-10.9); Hematocrit 23.4 VOL% (35.7-47.0); Hemoglobin 7.7 GM/DL (12.0-16.0); Immature Granulocytes % 0.6 %; Immature Granulocytes Absolute 0.03 #; Lymphocytes # 1.7 10*3/uL (1.4-4.0); Lymphocytes % 34.1 % (21.3-54.2); Mean Corpuscular HGB Conc 32.9 GM/DL (32-36); Mean Corpuscular Hemoglobin 31 PG (27-34); Mean Corpuscular Volume 95.1 FL (87-102); Mean Platelet Volume 10.3 FL (9.6-12.0); Monocytes # 0.5 10*3/uL (0.11-0.8); Monocytes % 10.6 % (1.7-12.7); Neutrophils # 2.6 10*3/uL (1.4-7.4); Neutrophils % 51.1 % (38.7-73.9); Platelet Count 157 T/CUMM (130-400); Red Blood Count 2.46 MC/CUMM (3.8-5.5); Red Cell Distribution Width 12.9 % (9.3-17.3)
[2017-07-25 18:08] LABS: INR 1.1; PT Patient Result 11.2 SECS
[2017-07-25 18:22] LABS: Alanine Aminotransferase 16 U/L (13-56); Alkaline Phosphatase 33 U/L (45-117); Aspartate Amino Transferase 22 U/L (0-37); Bilirubin,Total < 0.39 MG/DL (0.2-1.0); Blood Urea Nitrogen 4 MG/DL (7-18); Calcium 7.9 MG/DL (8.5-10.1); Glucose 96 MG/DL (74-106); Magnesium 1.9 MG/DL (1.8-2.4); Sodium 148 MMOL/L (136-145); Total Protein 5.7 G/DL (6.4-8.3)
[2017-07-25 18:23] LABS: Osmolality,Calculated 290.3 MOS/KG (273-304); Potassium 3.4 MMOL/L (3.5-5.1); Troponin I Only < 0.015 NG/ML (0.00-0.045)
[2017-07-25 18:25] LABS: Ammonia 28 UMOL/L (11-32)
--- NOTE | 2017-07-25 19:21 | XRay Report ---
Exam: KUB Exam date: 07/25/2017 710 PM Indication: Abdominal pain Comparison: No relevant comparison images Findings: Bowel gas pattern and visceral shadows are normal. No abnormal calcifications within the abdomen or pelvis. No acute osseous abnormalities. Visualized lung bases are unremarkable. Prior cholecystectomy. Impression: No acute findings PROCEDURE INTERPRETED AT [facility] DEPARTMENT OF RADIOLOGY Final Report Signed by: Kenzie Cortes MD
[2017-07-25] MEDS: HydrOXYzine PAMOATE 25 MG CAPSULE PO SCH (20:06)
[2017-07-25] MEDS: MELATONIN 3 MG TABLET PO PRN (21:25)
[2017-07-26] MEDS: ONDANSETRON 4 MG/2 ML VIAL IV PRN ×2 (01:11→16:34)
[2017-07-26] MEDS: AMPICILLIN/SULBACTAM 3,000 MG in SODIUM CHLORIDE 0.9% 100 ML IV SCH ×3 (03:22→17:51)
[2017-07-26 03:31] LABS: Basophils % 0.6 % (0.0-0.8); Eosinophils # 0.2 10*3/uL (0.0-0.87); Eosinophils % 4.8 % (0.00-10.9); Hematocrit 24.4 VOL% (35.7-47.0); Hemoglobin 7.9 GM/DL (12.0-16.0); Immature Granulocytes % 0.4 %; Immature Granulocytes Absolute 0.02 #; Lymphocytes # 2.1 10*3/uL (1.4-4.0); Lymphocytes % 42.5 % (21.3-54.2); Mean Corpuscular HGB Conc 32.4 GM/DL (32-36); Mean Corpuscular Hemoglobin 31 PG (27-34); Mean Corpuscular Volume 96.4 FL (87-102); Mean Platelet Volume 10.4 FL (9.6-12.0); Monocytes # 0.5 10*3/uL (0.11-0.8); Monocytes % 10.4 % (1.7-12.7); Neutrophils # 2.1 10*3/uL (1.4-7.4); Neutrophils % 41.3 % (38.7-73.9); Platelet Count 153 T/CUMM (130-400); Red Blood Count 2.53 MC/CUMM (3.8-5.5); Red Cell Distribution Width 13.1 % (9.3-17.3)
[2017-07-26 04:14] LABS: Albumin 2.6 G/DL (3.4-5.0); Bilirubin,Total 0.4 MG/DL (0.2-1.0); Calcium 7.4 MG/DL (8.5-10.1); Magnesium 1.9 MG/DL (1.8-2.4); Osmolality,Calculated 293.1 MOS/KG (273-304); Phosphorous 3.1 MG/DL (2.5-4.9); Potassium 3.3 MMOL/L (3.5-5.1); Total Protein 4.6 G/DL (6.4-8.3)
[2017-07-26] MEDS: metroNIDAZOLE INJ 500 MG in PREMIX 1 EACH IV SCH ×3 (04:30→19:46)
--- NOTE | 2017-07-26 08:30 | Gastrointestinal Progress Note ---
<OscarjuliusElvia Otf - Last Filed: 07/26/17 08:28> Assessment and Plan (1) Abdominal pain Status: Acute Assessment and plan: 07/26-EGD findings on yesterday noted to show peptic ulcer disease. Continue to hold Plavix. Noted to have continued low H&H at 7/24 with 2 units of packed red blood cells pending. Heating pad for shoulder discomfort. Plan an addendum to followed by Dr. Van. 07/24-Three to four week history of abdominal pain with nausea and vomiting. CT of abdomen results on 07/02 reviewed as below with diverticultisis verses colitis. IV Flagyl and Unasyn started. Stool for occult blood pending. No leukocytosis or fever. Clear liquid diet. Plan and addendum to follow by Dr Van Current Visit: Yes (2) Melena Status: Acute Assessment and plan: 07/24-New onset melena on yesterday without associated symptoms. On Plavix therapy as well as Naproxen and Aleve. Consider EGD for further evaluation of melena. Monitor serial HH. Stools for occult blood pending. Plan and addendum to follow by DR Van. Current Visit: Yes Gastroenterology - PN: Subj Interval history: CC: Melena Patient is seen awake alert response at bedside. States she had a fairly uneventful night. She does state after returning from her EGD on yesterday that she had an episode of abdominal pain. She states that following this episode she became unconscious due to a prior conversion disorder. Patient is complaining of some shoulder soreness today from the tactile stimuli from staff during this episode. Will order heating pad for this. She states that she has not had any reports of bleeding this morning. She did have a KUB done yesterday due to abdominal pain with that episode on results showed no acute findings. Abdomen soft, nontender. H&H is still down at 7/24. She is noted to have 2 units of packed red blood cells pending at this time. ROS: Denies shortness of breath or chest pain Exam (Progress Note) - Constitutional Vitals: Period Temp Pulse Resp BP Sys/Sorenson Pulse Ox Last 24 Hr 98.0 F-99.2 F 72-101 14-20 109-145/44-076 95-100 General appearance: normal weight, no acute distress - Head Head exam: Present: normal inspection, normocephalic - Eye Eye exam: Present: other (Lids and conjunctive are unremarkable). Absent: scleral icterus - ENT ENT exam: Present: normal exam, normal oropharynx - Neck Neck exam: Present: normal inspection - Respiratory Respiratory exam: Present: clear to auscultation bilaterally. Absent: rales, rhonchi, wheezes - Cardiovascular Cardiovascular exam: Present: regular rate and rhythm. Absent: diastolic murmur , JVD, systolic murmur - GI/Abdominal GI/Abdominal exam: Present: normal bowel sounds, soft. Absent: ascites, distended, mass, organomegaly, tenderness - Extremities Exam Extremities exam: Present: normal inspection, full ROM - Back Exam Back exam: Present: normal inspection - Neurological Exam Neurological exam: Present: alert, oriented X3 - Psychiatric Psychiatric exam: Present: normal affect, normal mood - Skin Skin exam: Present: normal color, warm, dry Results - Labs CBC & BMP: 07/26/17 02:47 07/26/17 02:47 Lab Results: I have reviewed the past 24 hour labs - Diagnostic Findings Procedure: KUB x-ray: report reviewed by me <Addison Van - Last Filed: 07/26/17 16:21> Exam (Progress Note) - Constitutional Vitals: Period Temp Pulse Resp BP Sys/Sorenson Pulse Ox Last 24 Hr 97.4 F-978.2 F 73-103 16-20 107-145/51-83 94-99 Results - Labs CBC & BMP: 07/26/17 02:47 07/26/17 02:47
[2017-07-26] MEDS: PANTOPRAZOLE 40 MG VIAL IV SCH (09:23)
[2017-07-26] MEDS: DIVALPROEX ER 250 MG TABLET PO SCH (09:26)
[2017-07-26] MEDS: CETIRIZINE 10 MG TABLET PO SCH (09:26)
--- NOTE | 2017-07-26 11:49 | Hospitalist Progress Note ---
<Morro Alcantara - Last Filed: 07/26/17 11:46> Assessment and Plan (1) Diverticulitis Status: Acute Assessment and plan: The patient was noted to have diffuse lower quadrant tenderness upon gentle palpation at the time of assessment. The patient is followed in the outpatient setting by Dr. Addison Van. Upon review of the patient's medical record, the patient was recently evaluated for symptoms similar in nature. The patient underwent CT abdomen and pelvis in the outpatient setting which was significant for diverticulitis versus acute colitis and hepatic steatosis. The patient was scheduled for an outpatient colonoscopy however, started to experience bradycardia. The patient was then advised to have a full cardiac workup and stress test in order to be cleared for colonoscopy. We will start gentle rehydration, empiric antibiotics, and pain management. We will place the patient n.p.o. Gastroenterology consultation has been requested. 07/24-continue supportive measures as previously ordered. Awaiting GI consultation for further direction. 07/25-EGD this a.m. per gastroenterology. 07/26-EGD on yesterday per gastroenterology; significant for acute peptic ulcer disease. We will continue PPI treatment as ordered and continue to hold Plavix. Current Visit: Yes (2) Acute kidney injury Status: Acute Assessment and plan: BUN and creatinine noted at 38 and 1.10. This is likely secondary to volume depletion. Upon review of the patient's medical record, during the previous clinical encounter on July 02, 2017, the patient's creatinine was noted at 0.66. We will rehydrate and recheck CMP in a.m. 07/24-noted improvement in renal function. BUN and creatinine noted at 23/0.80. We will continue gentle hydration and recheck CMP in a.m. 07/25-renal function has normalized; BUN and creatinine noted at 8/0.70. 07/26-renal function normalize; BUN and creatinine noted at 3/0.60. Current Visit: Yes (3) Anemia Status: Acute Assessment and plan: Noted decrease in blood counts; hemoglobin and hematocrit noted at 7.9/23.5 a noted decrease from 9.5/29.01 yesterday. We will recheck CBC in a.m. If levels continue to decline, the patient may require transfusion. 07/26-hemoglobin hematocrit remained stable at 7.9/24.4. Current Visit: Yes Hospitalist: Subjective Interval history: Patient seen and examined; chart reviewed. No significant overnight events reported per staff. Hemoglobin and hematocrit remained stable at 7.9/24.4. EGD on yesterday significant for acute peptic ulcer disease. Exam - Constitutional Vitals: Period Temp Pulse Resp BP Sys/Sorenson Pulse Ox Last 24 Hr 98.0 F-99.1 F 72-101 16-20 113-145/44-84 95-99 General appearance: normal weight, no acute distress - Head Head exam: Present: normal inspection, normocephalic, atraumatic - Eye Eye exam: Present: EOMI. Absent: conjunctival injection Pupils: Present: JOHN, normal accommodation - ENT ENT exam: Present: normal exam, normal external ear exam, normal oropharynx - Neck Neck exam: Present: normal inspection. Absent: lymphadenopathy, meningismus, thyromegaly - Respiratory Respiratory exam: Present: clear to auscultation bilaterally. Absent: rales, rhonchi, stridor, wheezes - Cardiovascular Cardiovascular exam: Present: regular rate and rhythm. Absent: carotid bruit, diastolic murmur, gallop, JVD, rubs, systolic murmur - GI/Abdominal GI/Abdominal exam: Present: normal bowel sounds, soft. Absent: tenderness - Extremities Exam Extremities exam: Present: normal inspection, normal capillary refill, full ROM. Absent: edema - Back Exam Back exam: Present: normal inspection - Neurological Exam Neurological exam: Present: alert, oriented X3, CN II-XII intact - Psychiatric Psychiatric exam: Present: normal affect, normal mood - Skin Skin exam: Present: normal color, warm, dry Results - Labs CBC & BMP: 07/26/17 02:47 07/26/17 02:47 Lab Results: I have reviewed the past 24 hour labs <David Fajardo - Last Filed: 07/26/17 16:25> Hospitalist: Subjective Interval history: Patient seen and examined independently of MARIAN Alcantara, agree with history, assessment and plan as documented. Transfusing 2 units of PRBCs. Possible discharge tomorrow. Exam - Constitutional Vitals: Period Temp Pulse Resp BP Sys/Sorenson Pulse Ox Last 24 Hr 97.4 F-978.2 F 73-103 16-20 107-145/51-83 94-99 Results - Labs CBC & BMP: 07/26/17 02:47 07/26/17 02:47
[2017-07-26] MEDS: POTASSIUM CHLORIDE 20 MEQ TABLET PO PRN ×3 (12:17→17:05)
[2017-07-26] MEDS: SODIUM CHLORIDE 0.9% 1,000 ML IV SCH ×2 (12:21→17:55)
--- NOTE | 2017-07-26 13:30 | Physician Query Form ---
CLICK EDIT DOCUMENT TO SELECT QUERY ANSWER --> OK --> SIGN Joana Carson RN, CCDS Certified Clinical Records Assistant W) [phone] (f) [phone] [email or web address] PROVIDERS: Make your selection(s) from the choices in EACH section by typing an "x" and enter comments in the comment section. Please use your independent medical judgment in providing your response. This request does not imply that any particular answer is desired or expected. CLINICAL INDICATORS: (Providers should not edit this section) The medical record indicates that the patient was admitted with rectal bleeding , "Noted decrease in blood counts; hemoglobin and hematocrit noted at 7.9/23.5 a noted decrease from 9.5/29.01 yesterday" and the patient is "noted to have 2 units of packed red blood cells pending at this time". Based on the above, could you clarify which of the following conditions you are evaluating, treating, and/or monitoring? (x ) Blood loss anemia ( x) acute ( ) chronic ( ) acute on chronic ( ) Acute blood loss anemia on baseline chronic anemia ( ) Acute blood loss anemia as a complication of a procedure ( ) Iron deficiency anemia not associated with blood loss ( ) Dilutional anemia due to IV fluids ( ) Anemia due to chemotherapy ( ) Anemia due to neoplastic disease ( ) Anemia due to chronic kidney disease ( ) Pernicious anemia ( ) Aplastic anemia ( ) Hemolytic anemia ( ) immune ( ) non-immune - please specify cause: ( ) Anemia due to other condition, please specify: ( ) Clinically unable to determine COMMENTS: PLEASE ALSO DOCUMENT RESPONSE IN PROGRESS NOTES AND/OR DISCHARGE SUMMARY Use of terms such as suspected, likely, or probable (associated with a specific diagnosis that is being evaluated, monitored, or treated as if it exists) are acceptable and can be restated in the discharge summary if not ruled out. MTDD
[2017-07-26] MEDS: HydrOXYzine PAMOATE 25 MG CAPSULE PO SCH (20:14)
[2017-07-26] MEDS: MELATONIN 3 MG TABLET PO PRN (23:52)
[2017-07-27] MEDS: AMPICILLIN/SULBACTAM 3,000 MG in SODIUM CHLORIDE 0.9% 100 ML IV SCH ×2 (02:09→06:26)
[2017-07-27] MEDS: SODIUM CHLORIDE 0.9% 1,000 ML IV SCH (02:09)
[2017-07-27] MEDS: metroNIDAZOLE INJ 500 MG in PREMIX 1 EACH IV SCH ×2 (03:50→08:24)
[2017-07-27 04:29] LABS: Basophils % 0.4 % (0.0-0.8); Eosinophils # 0.3 10*3/uL (0.0-0.87); Hematocrit 33.5 VOL% (35.7-47.0); Immature Granulocytes % 0.6 %; Immature Granulocytes Absolute 0.04 #; Lymphocytes # 2.1 10*3/uL (1.4-4.0); Lymphocytes % 31.7 % (21.3-54.2); Mean Corpuscular HGB Conc 33.1 GM/DL (32-36); Mean Corpuscular Hemoglobin 31 PG (27-34); Mean Corpuscular Volume 93.6 FL (87-102); Mean Platelet Volume 10.6 FL (9.6-12.0); Monocytes # 0.6 10*3/uL (0.11-0.8); Monocytes % 8.6 % (1.7-12.7); Neutrophils # 3.7 10*3/uL (1.4-7.4); Neutrophils % 54.7 % (38.7-73.9); Platelet Count 154 T/CUMM (130-400); Red Blood Count 3.58 MC/CUMM (3.8-5.5); Red Cell Distribution Width 13.8 % (9.3-17.3); White Blood Count 6.7 T/CUMM (4-12)
[2017-07-27 04:40] LABS: Hemoglobin 11.1 GM/DL (12.0-16.0)
--- NOTE | 2017-07-27 07:02 | Discharge Summary ---
<Morro Alcantara - Last Filed: 07/27/17 06:58> Hospital Course - Hospital Course Hospital Course: This is a 58-year-old female that presented to the ED at [facility] the afternoon of July 23, 2017 for the evaluation of abdominal cramping and rectal bleeding. Patient has a medical history significant for hypertension, cerebrovascular accident, asthma, chronic obstructive pulmonary disease, chronic pain, hyperlipidemia, gastroesophageal reflux disease, and conversion disorder. The patient reported no significant surgical history at the time of encounter. The patient reported the onset of the above symptoms 3 weeks prior to presentation. The patient reports that she is followed in the outpatient setting by Dr. Addison Van. She reported a recent evaluation and outpatient CT of the abdomen and pelvis ordered by Dr. Van. The patient underwent CT abdomen and pelvis on July 02, 2017 which was significant for diverticulitis versus acute colitis. Apparently, the patient started to experience profound bradycardia prompting cancellation of the pending colonoscopy. The patient had been referred to a production machine shop supervisor and a full cardiac workup was performed. The patient underwent cardiac stress test on last week for clearance however, the patient has not received the results. The patient reported that she experienced multiple black tarry stools that started on the day previous. Her symptoms became severe this afternoon prompting her to present to the ED for further evaluation. The patient was assessed at the time of ED presentation. Labs were obtained which were significant for hemoglobin 11.8, hematocrit 35.8, chloride 108, BUN 38, creatinine 1.10 and alkaline phosphatase 44. Chest x-ray was essentially unremarkable for any acute cardiopulmonary processes. The patient was subsequently admitted to the hospitalist service for continuation of care. Due to the severity of her presenting symptoms, a gastroenterology consultation was requested. Empiric antibiotics, protein pump inhibitors, and gentle rehydration was initiated. The patient was evaluated by gastroenterology and recommendations were given. On July 25, 2017, the patient underwent esophagogastroduodenoscopy which was significant for acute peptic ulcer disease. Protein pump inhibitor treatment was continued and platelet aggregation remained on hold. On July 26, 2017, the patient's hemoglobin and hematocrit was noted at 7.9/24.4. The patient was transfused 2 units of packed red blood cells and today the patient's hemoglobin and hematocrit is stable at 11.1 and 33.5. The patient's condition has gradually improved. The patient's condition is stable. She has not experienced any significant overnight events. Today, we feel that she is indeed appropriate for discharge to follow-up with her primary care physician and medical review coordinator as indicated. The patient has been discharged with instructions to continue protein pump inhibitors treatment and to refrain from the use of nonsteroidal agents. Diagnosis - Discharge Diagnosis (1) Diverticulitis Status: Acute (2) Acute kidney injury Status: Acute (3) Anemia Status: Acute Discharge Plan - Discharge Data Disposition: Disch To Home/Self Care - Discharge Medications New Amoxicillin/Potassium Clav [Amox Tr-K Clv 875-125 mg Tab] 1 each PO Q12H #20 tablet Continue Butalbital/Acet/Caff 50-325-40 [Fioricet 50-325-40 mg Tablet] 1 tablet PO Q4H PRN PRN Reason: Headache Divalproex ER [Depakote ER] 250 mg PO DAILY Metoprolol Tartrate Tab [Lopressor Tab] 50 mg PO BID Cetirizine Tab [ZyrTEC Tab] 10 mg PO DAILY hydrOXYzine pamoate [Hydroxyzine Pamoate] 25 mg PO BEDTIME Tramadol HCl [Tramadol Tab] 100 mg PO BID PRN PRN Reason: Pain Tizanidine HCl 4 mg PO BEDTIME Pregabalin [Lyrica] 150 mg PO BEDTIME Ondansetron HCl 8 mg PO Q8H PRN PRN Reason: Nausea Docusate Sodium [Colace] 100 mg PO QAM PRN PRN Reason: Constipation Clopidogrel Bisulfate [Clopidogrel] 75 mg PO QAM Ascorbic Acid [Vitamin C] 1,000 mg PO QAM Eszopiclone [Lunesta] 2 mg PO BEDTIME Ranitidine Tab [Zantac Tab] 150 mg PO BID Dicyclomine Cap/Tab [Bentyl Cap/Tab] 10 mg PO QID PRN PRN Reason: rectal pain Rosuvastatin Calcium 40 mg PO BEDTIME Oxycodone HCl/Acetaminophen [Oxycodone-Acetaminophen 10-325] 1 each PO TID Buspirone HCl 30 mg PO BID Discontinued Naproxen [Naprosyn Tab] 1 tablet PO BID PRN PRN Reason: Pain - Follow Up or Referral - Forms/Instructions Exam - Constitutional Vitals: Period Temp Pulse Resp BP Sys/Sorenson Pulse Ox Last 24 Hr 97.4 F-978.2 F 73-103 18-20 118-143/62-83 94-98 Discharge Results Procedures and tests throughout hospitalization: Pending Orders 07/23/17 16:24 Blood Culture Stat 07/23/17 21:50 Occult Blood, Stool Stat Labs on day of discharge: Labs from last 24 hours 07/27/17 07/27/17 07/25/17 03:21 03:21 17:22 WBC 6.7 D RBC 3.58 L D Hgb 11.1 L D Hct 33.5 L MCV 93.6 MCH 31 MCHC 33.1 RDW 13.8 Plt Count 154 MPV 10.6 Neut % (Auto) 54.7 Lymph % (Auto) 31.7 Harding % (Auto) 8.6 Eos % (Auto) 4.0 Baso % (Auto) 0.4 Neut # (Auto) 3.7 Lymph # (Auto) 2.1 Harding # (Auto) 0.6 Eos # (Auto) 0.3 Baso # (Auto) 0.0 Immature Gran % 0.6 Nucleated RBC % 0.0 Immature Gran # 0.04 Nucleated RBCs # 0.00 Immature Plt Fraction 0.0 Potassium 4.1 Blood Type O NEGATIVE Antibody Screen Negative Crossmatch See Detail Preliminary micro results at discharge 07/23/17 16:24 Blood Culture - Preliminary Blood No growth at 3 days 07/23/17 16:44 Blood Culture - Preliminary Blood No growth at 3 days DS: Provider Date of admission: 07/23/17 17:51 Primary care physician: Kenneth Tran MD Attending physician on admission: David Fajardo MD Consults: 07/23/17 18:17 Consult to Physician [CONS] Routine Comment: Consulting Provider: Addison Van When should Consulting Provider be notified: In am Consult to Specialist Group: Gastroenterology Person Notified: MARIAN BOOGIE Date Notified: 07/24/17 Time Notified: 08:37 Discharging clinician: Morro Alcantara CNP <David Fajardo - Last Filed: 07/27/17 10:33> Diagnosis - Discharge Diagnosis (1) Diverticulitis Status: Resolved (2) Abdominal pain Status: Resolved (3) Melena Status: Resolved (4) Anemia Status: Resolved Discharge Plan - Discharge Data Condition at Discharge: Stable Discharge Diet: high fiber diet Activity: increase activity as tolerated Hygiene: no restrictions Weight Bearing at Discharge: weight bear as tolerated Contact your physician if you experience:: fever over 101, Shortness of breath Exam - Constitutional General appearance: normal weight - Head Head exam: Present: normocephalic, atraumatic - Eye Eye exam: Present: EOMI Pupils: Present: JOHN - ENT ENT exam: Present: normal exam - Neck Neck exam: Present: normal inspection - Respiratory Respiratory exam: Present: clear to auscultation bilaterally. Absent: rhonchi, wheezes - Cardiovascular Cardiovascular exam: Present: regular rate and rhythm - GI/Abdominal GI/Abdominal exam: Present: normal bowel sounds, soft - Extremities Exam Extremities exam: Present: normal inspection - Back Exam Back exam: Present: normal inspection - Neurological Exam Neurological exam: Present: alert, oriented X3 - Psychiatric Psychiatric exam: Present: normal affect, normal mood - Skin Skin exam: Present: warm, intact
[2017-07-27 07:36] VITALS: BP 121/62
[2017-07-27] MEDS: PANTOPRAZOLE 40 MG VIAL IV SCH (08:24)
[2017-07-27] MEDS: DIVALPROEX ER 250 MG TABLET PO SCH (08:24)
[2017-07-27] MEDS: CETIRIZINE 10 MG TABLET PO SCH (08:24)
== END 2017-07-27 11:30 | disposition home health service (06) | DRG 378 ==
LOC: N.ED 15:51 → N.EDINP 17:51 → N.5E 19:29
PROVIDERS: ADMIT Internal Medicine; ATTEND Internal Medicine